=== PATIENT | female | born 2000 | race Two or more races ===

== ENCOUNTER 2020-01-23 20:40 | Emergency (ER) | payer MEDICAID, OTHER ==
[~2020-01-23] VITALS: Ht 162.6 cm; Wt 119.4 kg
[2020-01-23] MEDS ORDERED: LIDOCAINE HCL/PF 1% 10 MG/ML 5ML VIAL IJ ONE (21:15)
[2020-01-23] MEDS ORDERED: BACITRACIN ZINC OINT UDPKT TOP ONE (21:15)
[2020-01-23] MEDS ORDERED: IBUPROFEN 600MG TABLET PO ONE (21:15)
[2020-01-23 23:16] VITALS: BP 142/92
== END 2020-01-23 23:18 | disposition home or self-care (01) ==
LOC: ER 20:40
DX: S61.211A Laceration without foreign body of left index finger without damage to nail, initial encounter (principal); W26.8XXA Contact with other sharp object(s), not elsewhere classified, initial encounter; Y93.89 Activity, other specified; Y92.89 Other specified places as the place of occurrence of the external cause; Y99.8 Other external cause status
CPT/HCPCS: 81025; 99283; J3490